=== PATIENT | female | born 1975 | race Caucasian/White ===

== ENCOUNTER 2016-08-20 08:04 | Emergency (ER) | payer BC, OTHER ==
[~2016-08-20] VITALS: Ht 157.5 cm; Wt 67.4 kg
[~2016-08-20 08:04] MED LIST: MTR600X PO
[2016-08-20 08:08] VITALS: TEMP 36.7; Ht 157.5 cm; Wt 67.4 kg
[2016-08-20] MEDS ORDERED: ONDANSETRON INJ 2 MG/ML 2 ML VIAL IV STA (08:28)
[2016-08-20] MEDS ORDERED: MoRPHine SULFATE 2 MG/ML CARP IV STA ×2 (08:28→08:49)
[2016-08-20] MEDS ORDERED: LEVO125T72 PO (08:29)
[2016-08-20 08:50] LABS: BASO % 0.4 %; BASO ABS # 0.01 K/uL (0-0.2); COMPLETE YES; EOS % 1.2 %; HEMATOCRIT 38.3 % (37-47); LYMPH % 25.9 %; LYMPH ABS # 0.64 K/uL (1.2-3.4); MEAN CELL VOLUME 91.6 fL (80-100); MEAN CORPUSCULAR HEMOGLOBIN 31.8 pg (25-34); MEAN CORPUSCULAR HGB CONC 34.7 g/dl (32-36); MONO % 10.1 %; NEUT % 62.4 %; PLATELET COUNT 128 K/uL (130-400); RED BLOOD COUNT 4.18 M/uL (4.2-5.4); WHITE BLOOD COUNT 2.47 K/uL (4.8-10.8)
[2016-08-20 09:02] LABS: BUN/CREATININE RATIO 13.4 (10-20); CALCIUM 9.3 mg/dl (8.5-10.1); CREATININE 1.1 mg/dl (0.60-1.20); POTASSIUM 3.7 mmol/L (3.5-5.1)
--- NOTE | 2016-08-20 09:27 | DIAGNOSTIC IMAGING REPORT ---
CT OF THE CERVICAL SPINE WITHOUT CONTRAST CLINICAL HISTORY: Neck pain. Spasm. COMPARISON STUDY: No previous studies for comparison. TECHNIQUE: Helical axial images of the cervical spine were obtained without IV contrast. Sagittal and coronal reconstructions were viewed. FINDINGS: There is reversal of the normal cervical lordosis. Alignment of the cervical spine is otherwise anatomic. Vertebral body heights are maintained. There is no fracture or suspicious lesion. Central canal and neural foramen are suboptimally assessed by CT. However, there is no abnormality identified within the central canal. Minimal multilevel degenerative changes are present. There is no prevertebral edema. Lung apices are clear. IMPRESSION: 1. No acute cervical spine fracture or subluxation. 2. Minimal multilevel degenerative disc disease of the cervical spine. 3. Reversal of normal cervical lordosis. Electronically signed by: Jerome Camacho M.D. 08/20/2016 9:26 AM Dictated Date/Time: 08/20/2016 9:22 AM
[2016-08-20] MEDS ORDERED: DIAZEPAM INJ 5 MG/ML 2 ML CARP IV ONE (09:45)
[2016-08-20] MEDS ORDERED: CYCL10TA6 PO (10:30)
[2016-08-20] MEDS ORDERED: HYDR-5688 PO (10:30)
--- NOTE | 2016-08-20 10:31 | EMERGENCY ROOM VISIT NOTE ---
History First contact with patient: 08:14 Chief Complaint: NECK PAIN Stated Complaint: NECK PAIN History of Present Illness The patient is a 40 year old female who presents to the Emergency Department by private vehicle for evaluation of her neck pain. She reports that upon awakening this morning she attempted to turn off her long clock when she felt and heard a "pop" in her neck. She reports that she has been having spasm to the RIGHT side of her neck since. She reports that if she has her arm resting on her side she develops intense spasm in the neck and upper arm. She denies any numbness or tingling into the distal extremity. She took 800 mg of ibuprofen prior to arrival in the emergency department which is not providing any relief of symptoms. Several years ago, she did go through physical therapy for muscular strain in her neck, but has had no issues since. She rates her current discomfort as a 3.5/10. She denies any headaches, dizziness, light headedness, blurred vision, double vision, slurred speech, facial droop, chest pain, nausea, or vomiting. She denies any trauma to the cervical spine. Review of Systems A complete 10-point Review of Systems was discussed with the patient, with pertinent positives and negatives listed in the History of Present Illness. All remaining Review of Systems questions can be considered negative unless otherwise specified. Social History Smoking Status: Never Smoker Smokeless Tobacco Use: No Drug Use: none Occupation Status: employed Current/Historical Medications Scheduled Levothyroxine Sodium (Synthroid), 112 MCG PO Q2D Levothyroxine Sodium (Synthroid), 125 MCG PO Q2D Scheduled PRN Hydrocodone/Acetaminophen 5MG/325MG ([place] 5MG/325MG), 1-2 TABLET PO Q4H PRN for Pain Allergies Coded Allergies: Sulfamethoxazole w/Trimethoprim (Verified Allergy, Intermediate, rash, ) Penicillins (Verified Allergy, Unknown, ?, 08/20/16) Sulfa Drugs (Verified Adverse Reaction, Severe, VOMITING, 08/20/16) Prednisone (Verified Adverse Reaction, Intermediate, "get crazy", 08/20/16) Physical Exam Vital Signs Date Time Temp Pulse Resp B/P Pulse Ox O2 Delivery O2 Flow Rate FiO2 08/20/16 11:04 63 16 107/79 98 08/20/16 10:10 66 16 110/76 96 Room Air 08/20/16 08:08 36.7 83 16 131/81 96 Room Air Pain Rating (0-10): 3.5 Physical Exam VITAL SIGNS - Vital signs and nursing notes were reviewed. GENERAL - 40-year-old female appearing her stated age who is in no acute distress. Communicates well with provider and answers questions appropriately. HEAD - Normocephalic, Atraumatic. No Sears's Sign or Raccoon's Eyes. No depressed skull fractures palpable. EYES - PERRL with EOMI bilaterally. Sclera anicteric. Palpebral conjunctiva pink and moist with no injection noted. EARS - No deformities of external structures noted on gross examination bilaterally. No pain elicited with palpation of the tragus bilaterally. External auditory canals without discharge or otorrhea. Tympanic membranes pearly carney without retraction or bulging. NOSE - Midline and without cyanosis. No epistaxis or purulent drainage noted. Septum midline without deviation or septal hematoma noted. MOUTH/OROPHARYNX - Without perioral cyanosis. Buccal mucosa pink and moist and without leukoplakia. Tongue midline with equal elevation of palate bilaterally. No tonsillar hypertrophy, erythema, or exudates noted. NECK - Neck with limited ROM secondary to patient discomfort. No cervical spinous process tenderness to palpation. Moderate paraspinal muscle tenderness to palpation to the RIGHT sided cervical paraspinal musculature. No lymphadenopathy noted. Moderate pain through range of motion appreciated. Mild pain elicited with axial load applied to the head. EXTREMITIES - +5/5 strength appreciated bilaterally of the upper extremities. +3 /5 radial pulses palpated throughout. FROM with no tremors, fasciculations, or clonus noted on PROM throughout. NEUROLOGIC - Cranial nerves II through XII grossly intact. Sensory intact to light and sharp touch throughout. Patient able to perform rapid alternating movements appropriately. PSYCH - A&Ox3 and cooperates fully with examiner. Pt is very pleasant and interacts well with examiner. Medical Decision & Procedures ER Provider Diagnostic Interpretation: Radiological imaging and reports were reviewed by myself. Radiologist's Interpretation as follows: CT OF THE CERVICAL SPINE WITHOUT CONTRAST CLINICAL HISTORY: Neck pain. Spasm. COMPARISON STUDY: No previous studies for comparison. TECHNIQUE: Helical axial images of the cervical spine were obtained without IV contrast. Sagittal and coronal reconstructions were viewed. FINDINGS: There is reversal of the normal cervical lordosis. Alignment of the cervical spine is otherwise anatomic. Vertebral body heights are maintained. There is no fracture or suspicious lesion. Central canal and neural foramen are suboptimally assessed by CT. However, there is no abnormality identified within the central canal. Minimal multilevel degenerative changes are present. There is no prevertebral edema. Lung apices are clear. IMPRESSION: 1. No acute cervical spine fracture or subluxation. 2. Minimal multilevel degenerative disc disease of the cervical spine. 3. Reversal of normal cervical lordosis. Laboratory Results 08/20/16 08:35 Red Blood Count 4.18, Mean Corpuscular Volume 91.6, Mean Corpuscular Hemoglobin 31.8, Mean Corpuscular Hemoglobin Concent 34.7, Mean Platelet Volume 11.0, Neutrophils (%) (Auto) 62.4, Lymphocytes (%) (Auto) 25.9, Monocytes (%) (Auto) 10.1, Eosinophils (%) (Auto) 1.2, Basophils (%) (Auto) 0.4, Neutrophils # (Auto ) 1.54, Lymphocytes # (Auto) 0.64, Monocytes # (Auto) 0.25, Eosinophils # (Auto ) 0.03, Basophils # (Auto) 0.01 08/20/16 08:35 Test 08/20/16 08:35 White Blood Count 2.47 K/uL (4.8-10.8) Red Blood Count 4.18 M/uL (4.2-5.4) Hemoglobin 13.3 g/dL (12.0-16.0) Hematocrit 38.3 % (37-47) Mean Corpuscular Volume 91.6 fL (80-100) Mean Corpuscular Hemoglobin 31.8 pg (25-34) Mean Corpuscular Hemoglobin Concent 34.7 g/dl (32-36) Platelet Count 128 K/uL (130-400) Mean Platelet Volume 11.0 fL (7.4-10.4) Neutrophils (%) (Auto) 62.4 % Lymphocytes (%) (Auto) 25.9 % Monocytes (%) (Auto) 10.1 % Eosinophils (%) (Auto) 1.2 % Basophils (%) (Auto) 0.4 % Neutrophils # (Auto) 1.54 K/uL (1.4-6.5) Lymphocytes # (Auto) 0.64 K/uL (1.2-3.4) Monocytes # (Auto) 0.25 K/uL (0.11-0.59) Eosinophils # (Auto) 0.03 K/uL (0-0.5) Basophils # (Auto) 0.01 K/uL (0-0.2) RDW Standard Deviation 42.7 fL (36.4-46.3) RDW Coefficient of Variation 12.7 % (11.5-14.5) Immature Granulocyte % (Auto) 0.0 % Immature Granulocyte # (Auto) 0.00 K/uL (0.00-0.02) Anion Gap 13.0 mmol/L (3-11) Est Creatinine Clear Calc Drug Dose 61.2 ml/min Estimated GFR () 72.7 Estimated GFR (Non- 62.8 BUN/Creatinine Ratio 13.4 (10-20) Calcium Level 9.3 mg/dl (8.5-10.1) Medications Administered Medications (Trade) Dose Ordered Sig/Paul Route Start Time Stop Time Status Last Admin Dose Admin Morphine Sulfate (MoRPHine SULFATE INJ) 2 mg NOW STAT IV 08/20/16 08:28 08/20/16 08:30 DC 08/20/16 08:36 2 MG Ondansetron HCl (Zofran Inj) 4 mg NOW STAT IV 08/20/16 08:28 08/20/16 08:30 DC 08/20/16 08:35 4 MG Morphine Sulfate (MoRPHine SULFATE INJ) 2 mg NOW STAT IV 08/20/16 08:49 08/20/16 08:50 DC 08/20/16 08:55 2 MG Diazepam (Valium Inj) 2.5 mg NOW ONCE IV 08/20/16 09:45 08/20/16 09:46 DC 08/20/16 09:40 2.5 MG ED Course Patient was seen and evaluated by myself. Labs were drawn, saline lock complains. The patient was treated with 2 mg morphine and 4 mg Zofran intravenously for pain. CT of the cervical spine was obtained. Patient was treated with an additional 2 mg morphine for ongoing pain. Patient is still unable to relax the RIGHT upper extremity secondary to pain. CT results above. Because of her ongoing symptoms, the patient was treated with 2.5 mg Valium intravenously. Patient had near complete resolve symptoms at this point. Laboratory results and imaging studies were reviewed with the patient who acknowledges understanding. The patient was educated on peln-umw-yswaxba medications as well as worrisome symptoms for return visit to the emergency department. Patient discharged home in good condition with her driving. Medical Decision Given the patient's presentation and exam finds, I did elect to perform the above-mentioned workup. The patient resents today with an acute injury to the neck. There is no direct trauma, however the patient has obvious spasm to the RIGHT-sided paraspinal musculature. She has pain through range of motion. She has no radicular symptoms. CT demonstrates no acute findings otherwise. The patient is a narcotic franco and does not respond well to narcotic pain medications in general. Because of this, she was titrated slowly with 2 g morphine and eventually received 2.5 mg Valium intravenously. She had near complete response to this regime. Patient refuses steroids as she has a sensitivity to the medication. The patient was provided pain medication for home. She'll follow-up with her primary care provider from today's visit or return to the emergency department in the setting of any change or worsening symptoms. Patient discharged home in good condition with her driving. In the evaluation and treatment of this patient, the following differential diagnoses were considered: Musculoskeletal Strain, Discitis, Cervical Spine Fracture, Cervical Spine Dislocation, Cervical Spine Subluxation, Cervical Spondylosis, Fibromyalgia, Osteoarthritis, Polymyalgia Rheumatica, Psychogenic Pain Disorder, Tumor of Soft Tissue or Spine. Impression Primary Impression: Cervical strain, acute Departure Information Dispostion Home / Self-Care Condition GOOD Prescriptions Hydrocodone/Acetaminophen 5MG/325MG ([place] 5MG/325MG) Tab 1-2 TABLET PO Q4H Y for Pain, #24 TAB For Initial Treatment Prov: Dheeraj Raza PA-C 08/20/16 Referrals Pepper Bartholomew M.D. (PCP) Patient Instructions [facility], Neck Strain - [facility] Additional Instructions You have been treated in the Emergency Department for Cervical Strain. You have received pain medicine in the emergency department which impairs your ability to operate a vehicle. It is illegal for you to drive after receiving these medicines. You have been prescribed [place] one to 2 tabs every 4-6 hours as needed for pain. This is a narcotic medication. You cannot drive or consume alcohol while on this medicine. This medicine should only be used for pain that cannot be controlled with yhvx-oqe-qqhuhiy pain medicines. You have been prescribed Flexeril (cyclobenzaprine) 1-2 tabs orally, three times per day. Do NOT exceed 30 mg (6 tabs) per day. Take your first dose at bedtime as it can make you drowsy. Always take all medications as prescribed. For pain control, you can use the following ivfv-azc-jfzkykw medicines (if >12 yo): - Regular strength (325mg/tab) Tylenol (acetaminophen) 2 tabs every 4-6 hours as needed. Do not exceed 12 tablets in a 24 hour period. Avoid taking more than 4 grams (4000 mg) of Tylenol per day. This includes any other sources of acetaminophen you may take on a regular basis. - Regular strength (200 mg/tab) Advil (ibuprofen) 1-2 tabs every 4-6 hours as needed. Do not exceed a dose of 3200 mg per day. If this is an acute injury, ice can be applied to the area of pain for the first 3 days to help decrease pain and inflammation. After the first 3 days, a heating pad can be used over the area for continued soothing relief. You should schedule a follow-up appointment in 2-3 days with your Primary Care Provider for further evaluation and treatment of your neck pain. Return to the Emergency Department if your current symptoms worsen despite treatment course outlined above, or if you develop any of the following symptoms : intractable pain despite aforementioned treatment course, facial droop, slurred speech, unilateral weakness, or worsening of her current symptoms. Problem Qualifiers Primary Impression: Cervical strain, acute Encounter type: initial encounter Qualified Codes: S16.1XXA - Strain of muscle, fascia and tendon at neck level, initial encounter
[2016-08-20 11:04] VITALS: BP 107/79; PULSE 63; O2SAT 98
[2016-08-20] MEDS ORDERED: LEVO112T2 PO (11:55)
[2017-02-08] MEDS ORDERED: OXYC-57 PO (09:17)
== END 2016-08-20 11:06 | disposition home or self-care (01) ==
LOC: C.EDB 08:05
DX: S16.1XXA Strain of muscle, fascia and tendon at neck level, initial encounter (principal); X50.1XXA Overexertion from prolonged static or awkward postures, initial encounter; Y92.013 Bedroom of single-family (private) house as the place of occurrence of the external cause; Z79.899 Other long term (current) drug therapy

== ENCOUNTER → 2016-12-10 | Outpatient (CLI) | payer BC ==
[~2016-12-10] MED LIST changes: +HYDR-5688 PO; +LEVO112T2 PO; +LEVO125T72 PO; -MTR600X PO; +OXYC-57 PO
== END | disposition home or self-care (01) ==
LOC: C.PAPS 16:20
PROVIDERS: ATTEND Obstetrics & Gynecology
DX: N92.0 Excessive and frequent menstruation with regular cycle (principal)

== ENCOUNTER 2017-02-08 07:00 | Observation (INO) | payer BC ==
[2017-01-25 13:48] VITALS: BMI 26.0
--- NOTE | 2017-01-25 14:12 | PAT Medication Instructions ---
Service Date Jan 25, 2017. Current Home Medication List Levothyroxine Sodium (Synthroid), 112 MCG PO Q2D Levothyroxine Sodium (Synthroid), 125 MCG PO Q2D Medication Instructions For Your Scheduled Surgery - Take the following medications the morning of surgery with a sip of water: Levothyroxine Sodium (Synthroid), 112 MCG PO Q2D Levothyroxine Sodium (Synthroid), 125 MCG PO Q2D If you have any questions please call us at [phone] or [phone] or [phone]
[2017-01-25 14:40] LABS: BASO % 0.4 %; BASO ABS # 0.02 K/uL (0-0.2); COMPLETE YES; HEMATOCRIT 37.1 % (37-47); LYMPH % 33.7 %; LYMPH ABS # 1.73 K/uL (1.2-3.4); MEAN CELL VOLUME 90.9 fL (80-100); MEAN CORPUSCULAR HEMOGLOBIN 30.9 pg (25-34); MEAN PLATELET VOLUME 11.3 fL (7.4-10.4); MONO % 5.3 %; NEUT % 59.6 %; PLATELET COUNT 135 K/uL (130-400); RED BLOOD COUNT 4.08 M/uL (4.2-5.4); WHITE BLOOD COUNT 5.13 K/uL (4.8-10.8)
[~2017-02-08] VITALS: Ht 157.5 cm; Wt 65.6 kg
[2017-02-08] VITALS (7 sets, daily range): BP systolic 109–121; BP diastolic 63–81; PULSE 56–83; TEMP 36.3–36.7; O2SAT 94–100; Ht 157.5 cm; Wt 65.6 kg
[~2017-02-08 07:00] MED LIST changes: +CEFAZOLIN 2000 MG/60 ML D5W 60 ML IV SCH; -HYDR-5688 PO; +LACTATED RINGER'S 1000ML 1,000 ML IV SCH; +LACTATED RINGER'S 1000ML IV SCH; -OXYC-57 PO; +SCOPOLAMINE 1.5 MG TDSY TD SCH
[2017-02-08] MEDS ORDERED: MIDAZOLAM HCL 1 MG/ML 2ML VIAL ONE (08:10)
[2017-02-08] MEDS ORDERED: FENTANYL CITRATE INJ 50 MCG/1 ML 2 ML VIAL ONE (08:10)
[2017-02-08] MEDS ORDERED: HYDROmorphone INJ 2 MG/ML SYR/VIAL ONE (08:10)
[2017-02-08] MEDS ORDERED: ACETAMINOPHEN 325 MG TAB PO PRN (09:15)
[2017-02-08] MEDS: LACTATED RINGER'S 1000ML 1,000 ML IV SCH ×3 (09:15→21:59)
[2017-02-08] MEDS ORDERED: KETOROLAC TROMETHAMINE 30 MG/ML VIAL IV. PRN ×2 (09:15→09:30)
[2017-02-08] MEDS ORDERED: MEPERIDINE HCL 50 MG/ML CARP IV PRN ×2 (09:15)
[2017-02-08] MEDS ORDERED: OXYCODONE/ACETAMINOPHEN 5-325 TAB PO PRN ×2 (09:15)
--- NOTE | 2017-02-08 09:15 | History & Physical Bridge Note ---
H&P Re-Evaluation Bridge Note: I have examined the patient, reviewed the History & Physical and in the interval since the performance of the History & Physical I have noted the following changes of clinical significance: No changes noted
[2017-02-08] MEDS ORDERED: OXYC-57 PO (09:17)
--- NOTE | 2017-02-08 09:18 | Discharge Instructions ---
Discharge Instructions Date of Service Feb 08, 2017. Visit Reason for Visit: Menorrhagia Discharge Discharge Diagnosis / Problem: Hysterectomy Discharge Goals Goal(s): Specific goals Activity Recommendations Activity Limitations: per Instructions/Follow-up section Anesthesia . Post Anesthesia Instructions: If you have had General Anesthesia or IV Sedation: * Do not drive today. * Resume driving when surgeon permits. * Do not make important decisions or sign legal documents today. * Call surgeon for: 1. Temperature elevations greater than 101 degrees F. 2. Uncontrollable pain. 3. Excessive bleeding. 4. Persistent nausea and vomiting. 5. Medication intolerance (nausea, vomiting or rash). * For nausea and vomiting use only clear liquids such as: tea, soda, bouillon until nausea subsides, then gradually increase diet as tolerated. * If you have any concerns or questions, call your surgeon's office. If physician is unavailable and it is an emergency, call 911 or go to the nearest emergency room. . Instructions / Follow-Up Instructions / Follow-Up POST OPERATIVE: BOWEL FUNCTION/MEDICATIONS: 1. Constipation pain and discomfort are the most common complaints 5-7 days after surgery. Points 2-6 address the things that can help. 2. Chewing gum can help stimulate the gut and help improve digestion and motility. 3. Milk of Magnesia 1-2 times per day until return of bowel function. 4. Colace is a stool softener that helps. Taking this 2-3 times per day until bowel function returns to normal is highly recommended. 5. Dulcolax is a laxative that may be used if several days have passed without a bowel movement. Alternatively Miralax may be used daily instead. 6. Drink plenty of fluids as this will also reduce constipation. 7. Narcotic pain medications will be prescribed by your physician. They are safe to use and we encourage you to use them. If you are not allergic, ibuprofen will also be prescribed. Many patients will be able to transition off of the narcotic medications to ibuprofen by postoperative day 3. ACTIVITY RECOMMENDATIONS: 1. Get plenty of rest and listen to your body. If you are tired, take a nap. 2. You may shower, but do not take a tub bath until you see your doctor at the 2 week post operative visit. 3. Absolutely NO intercourse and nothing in the vagina until you are examined by your doctor at the 6 week visit. At that visit it will be determined when such activities can be resumed. This can range from 6-12 weeks after your surgery depending on healing time. 4. The main physical activity in the first week should be walking. By the second week you can slowly increase activity. There are no limits on walking up and down stairs. 5. Do not lift more than 5-10 lbs for 4 weeks. Remember the "one-handed rule", i.e. if you can lift something with only one hand it's likely okay. 6. Minimize natural resources professor like vacuuming and exercising for 4 weeks. "Overdoing it" can lead to incisions not healing, pain and vaginal bleeding , so again, listen to your body. 7. Driving can be resumed when you feel able. Do not drive within 24 hours of taking a narcotic medication. EXPECTATIONS: 1. Vaginal spotting, bleeding and discharge are common after surgery. There may even be an odor to the discharge which is often related to sutures used in the vagina. If you experience heavy vaginal bleeding, call the office number day or night [phone]. 2. Bladder discomfort is common after surgery from the catheter. This usually resolves in 1-2 weeks. 3. By the end of the 3rd or 4th week you should be feeling much better. It may take up to 6 weeks for your energy levels to return to normal. 4. Narcotic medications have side effects such as: dizziness, headache, nausea and/or vomiting. If you suspect your pain medication is causing problems, call our office and we may be able to prescribe an alternate medication. 5. The skin incisions are often covered with a liquid bandage. This will gradually peel off over time. CALL THE OFFICE IF YOU HAVE ANY OF THE FOLLOWIN. Temperature of 101 degrees or higher. 2. Severe abdominal or pelvic pain not relieved by pain medication. 3. Persistent nausea or vomiting. 4. Increased pain with urination or difficulty urinating. 5. Bright red bleeding that soaks more than 1 pad per hour. CONTACT PHONE NUMBERS: Main Office: [phone] Surgical Nurse: [phone] extension [phone] FOLLOW-UP: Post-Operative Appointments: * Individual instructions will have been given about the timing of your first examination, but this is usually at the end of the second week home. * You will need to call the office at soon after discharge to make the appointment for your post-op check-up if it has not already been scheduled. * Additional information regarding activity, sexual intercourse and when to return to work will be given at this appointment. WE WISH YOU A SPEEDY RECOVERY! Diet Recommendations Recommended Home Diet: resume previous diet Pending Studies Studies pending at discharge: no Medical Emergencies . Who to Call and When: Medical Emergencies: If at any time you feel your situation is an emergency, please call 911 immediately. . Non-Emergent Contact Non-Emergency issues call your: Primary Care Provider . . "Provider Documentation" section prepared by Urszula Costa. . [place] Drug Monitoring Program Search Results: no issues identified
[2017-02-08] MEDS ORDERED: PROMETHAZINE HCL INJ 6.25 MG in SODIUM CHLORIDE 0.9% 50ML 50 ML IV PRN ×2 (09:30→13:15)
[2017-02-08] MEDS ORDERED: HYDROmorphone INJ 2 MG/ML SYR/VIAL IV PRN (09:30)
[2017-02-08] MEDS ORDERED: ONDANSETRON INJ 2 MG/ML 2 ML VIAL IV PRN ×2 (09:30→13:15)
[2017-02-08] MEDS ORDERED: ATROPINE SULFATE 0.1 MG/ML 5ML SYR IV PRN ×2 (09:30→13:15)
[2017-02-08] MEDS ORDERED: IV FLUIDS COMPLETED PRN (10:30)
[2017-02-08] MEDS ORDERED: KETAMINE HCL INJ 50 MG/ML 10 ML VIAL ONE (10:48)
[2017-02-08] MEDS ORDERED: PROPOFOL IV EMULSION 10 MG/ML 20 ML VIAL IV ONE (10:49)
[2017-02-08] MEDS ORDERED: ONDANSETRON INJ 2 MG/ML 2 ML VIAL ONE (10:49)
[2017-02-08] MEDS ORDERED: DEXAMETHASONE SOD INJ 4 MG/ML VIAL ONE ×2 (10:49→11:19)
[2017-02-08] MEDS ORDERED: NEOSTIGMINE METHYLSULFATE 5 MG/5 ML SYR ONE (10:49)
[2017-02-08] MEDS ORDERED: GLYCOPYRROLATE INJ 0.2 MG/ML VIAL ONE ×2 (10:49→12:14)
[2017-02-08] MEDS ORDERED: ROCURONIUM BROMIDE 10 MG/ML 5 ML VIAL ONE (10:49)
[2017-02-08] MEDS ORDERED: LIDOCAINE HCL 2% 2 ML VIAL (20MG/ML) ONE (10:49)
[2017-02-08] MEDS ORDERED: DiphenhydrAMINE HCL 50 MG/ML VIAL ONE (10:49)
[2017-02-08] MEDS ORDERED: METHYLENE BLUE 0.5% 10 ML VIAL ONE (11:19)
[2017-02-08] MEDS ORDERED: KETOROLAC TROMETHAMINE 30 MG/ML VIAL ONE (11:30)
[2017-02-08] MEDS ORDERED: TISSEEL FIBRIN SEALANT 4ML TOP ONE (11:47)
[2017-02-08] MEDS ORDERED: LARYING-O-JET KIT (LTA) ONE ×2 (11:56)
--- NOTE | 2017-02-08 12:22 | Medical Student: [facility] ---
Immediate Operative Summary Operative Date Feb 08, 2017. Pre-Operative Diagnosis Menorrhagia Post-Operative Diagnosis Same Procedure(s) Performed Hyesterectomy, Right Salpingectomy, Cystoscopy Surgeon Dr. Costa Warehouse Helper Surgeon(s) Farnaz Yousif MS3 Estimated Blood Loss 30 cc Findings Uterus densely adhered to anterior abdominal wall. Fluids (cc crystalloids) 1350 cc Specimens Uterus and right fallopian tube segment. Drains 200 cc urine mckeon catheter Anesthesia General Complication(s) None Disposition Recovery Room / PACU
--- NOTE | 2017-02-08 13:43 | Anesthesiology Progress Note ---
Anesthesia Post Op Note Date & Time Feb 08, 2017 at 13:42 Vital Signs Pain Intensity: 0 Vital Signs Past 12 Hours Date Time Temp Pulse Resp B/P (MAP) Pulse Ox O2 Delivery O2 Flow Rate FiO2 02/08/17 13:34 51 02/08/17 13:34 51 16 100 02/08/17 13:32 115/66 02/08/17 13:29 52 12 100 02/08/17 13:29 51 12 02/08/17 13:24 52 12 02/08/17 13:24 52 12 100 02/08/17 13:21 116/74 02/08/17 13:19 55 13 100 02/08/17 13:19 55 13 02/08/17 13:17 108/72 02/08/17 13:14 53 9 100 02/08/17 13:14 52 9 02/08/17 13:13 36.5 02/08/17 13:12 53 14 117/67 100 02/08/17 13:12 53 14 02/08/17 13:07 55 13 02/08/17 13:07 56 13 115/71 100 02/08/17 13:02 58 14 100 02/08/17 13:02 58 14 02/08/17 13:01 125/80 02/08/17 12:57 56 13 113/54 100 02/08/17 12:57 56 13 02/08/17 12:52 58 9 02/08/17 12:52 58 9 123/59 100 02/08/17 12:47 57 16 02/08/17 12:47 58 16 100 02/08/17 12:46 122/64 02/08/17 12:42 71 11 100 02/08/17 12:42 71 11 02/08/17 12:41 100/84 02/08/17 12:37 59 12 02/08/17 12:37 59 12 100 02/08/17 12:36 111/61 02/08/17 12:32 71 7 128/66 100 02/08/17 12:32 70 7 02/08/17 12:27 70 14 02/08/17 12:27 70 14 99 02/08/17 12:26 137/72 02/08/17 12:22 64 15 02/08/17 12:22 64 15 100 02/08/17 12:21 115/70 02/08/17 12:18 137/68 02/08/17 12:17 72 100 02/08/17 12:17 36.2 73 16 137/68 100 Mask 10 02/08/17 12:17 72 02/08/17 07:40 36.7 70 18 116/77 (90) 99 Room Air Notes Mental Status: alert / awake / arousable, participated in evaluation Pt Amnestic to Procedure: Yes Nausea / Vomiting: adequately controlled Pain: adequately controlled Airway Patency, RR, SpO2: stable & adequate BP & HR: stable & adequate Hydration State: stable & adequate Anesthetic Complications: no major complications apparent
[2017-02-08 15:57] LABS: HEMATOCRIT 33.3 % (37-47)
[2017-02-08] MEDS: CHECK SCOPOLAMINE PATCH PLACEMENT SCH ×2 (15:57→23:47)
[2017-02-08] MEDS ORDERED: ONDANSETRON HOME PACK 4MG OD TAB PO ONE (18:45)
[2017-02-08] MEDS: ONDANSETRON INJ 2 MG/ML 2 ML VIAL IV PRN (19:44)
[2017-02-08] MEDS: DOCUSATE SODIUM 100 MG CAP PO SCH (20:34)
[2017-02-08] MEDS: IBUPROFEN 600 MG TAB PO PRN ×2 (23:10→23:32)
[2017-02-09] MEDS: ONDANSETRON INJ 2 MG/ML 2 ML VIAL IV PRN ×2 (02:21→09:00)
[2017-02-09 03:50] VITALS: BP 96/62; PULSE 58; TEMP 36.8; O2SAT 94
[2017-02-09] MEDS: LACTATED RINGER'S 1000ML 1,000 ML IV SCH (05:45)
[2017-02-09 07:40] VITALS: BP 110/70; PULSE 69; TEMP 37.1; O2SAT 93
[2017-02-09] MEDS: CHECK SCOPOLAMINE PATCH PLACEMENT SCH (08:00)
[2017-02-09] MEDS: DOCUSATE SODIUM 100 MG CAP PO SCH (08:59)
[2017-02-09] MEDS: IBUPROFEN 600 MG TAB PO PRN (08:59)
[2017-02-09 10:15] VITALS: BP 110/70; PULSE 69; TEMP 37.1; O2SAT 93
--- NOTE | 2017-02-20 14:19 | Discharge Summary ---
Discharge Summary Date of Service Feb 20, 2017. Discharge Summary Admission Date: Feb 08, 2017 at 09:17 Discharge Date: Feb 09, 2017 Discharge Disposition: Home Principal Diagnosis: Hysterectomy Immunizations: Have You Had Influenza Vaccine: Yes Influenza Vaccine Date: Apr 29, 2013 History of Tetanus Vaccine?: Yes Tetanus Immunization Date: Jan 27, 2010 History of Pneumococcal: No History of Hepatitis B Vaccine: Yes Procedures: Robotic hysterectomy, R salpingectomy, cystoscopy Medication Reconciliation New Medications: Oxycodone/Acetaminophen 5MG/325MG (Percocet 5MG/325MG) Tab 1 TABLET PO Q4H PRN for Pain, #15 TAB Continued Medications: Levothyroxine Sodium (Synthroid) 112 Mcg Tab 112 MCG PO Q2D, TAB Levothyroxine Sodium (Synthroid) 125 Mcg Tab 125 MCG PO Q2D, TAB Hospital Course Total Time Spent: Less than 30 minutes This includes examination of the patient, discharge planning, medication reconciliation, and communication with other providers. Discharge Instructions Please refer to the electronic Patient Visit Report (Discharge Instructions) for additional information.
--- NOTE | 2017-02-20 14:54 | OPERATIVE REPORT ---
DATE OF OPERATION: 02/08/2017 PREOPERATIVE DIAGNOSIS: Menorrhagia. POSTOPERATIVE DIAGNOSIS: Same. PROCEDURE: Robotic hysterectomy with right salpingectomy and cystoscopy. SURGEON: Dr. Urszula Costa. RADIO EQUIPMENT INSTALLER: Nancy Torres MD ESTIMATED BLOOD LOSS: 30 mL. FINDINGS: Dense uterine adhesions to the anterior abdominal wall. SPECIMENS: Uterus and segment of right fallopian tube. COMPLICATIONS: None. DISPOSITION: Stable to the recovery room. DESCRIPTION OF PROCEDURE: Brandy was brought to the operating room and placed on the table in the dorsal lithotomy position with Yellofin stirrups, prepped and draped in the standard sterile fashion and a hard time-out was taken prior to proceeding. The Paredes and VCare uterine manipulator were introduced as per usual. Of note, the cervix was very anteriorly fixed and introduction of the VCare was somewhat difficult. Entry was then made at the abdominal paraumbilical local region without complication in an optical manner. The abdomen was insufflated. The patient was placed in steep Trendelenburg and right and left lower quadrant ports were placed under direct visualization. Portion of the right fallopian tube was able to be isolated and dissected off the mesosalpinx and allowed to remain attached at the uterine cornu. The left fallopian tube was difficult to visualize. There appeared to have been some fimbria densely adherent near the ovary in an area of adhesions that was not easily able to identify. It was not felt to be worth the risk to the patient's overlying bowel to remove this portion of tube. Dissection proceeded to free the uterus from the anterior abdominal wall and identify the area of the colpotomy cup and the bladder flap. The right and left uteroovarian ligaments were ligated and divided. The round ligaments were ligated and divided and a bladder flap was created. The uterine arteries were skeletonized and ligated bilaterally and circumferential colpotomy was completed. The uterus, cervix and portion of right fallopian tube were delivered through the vagina. The vagina was closed using a V-Loc suture at the cuff as is typical. Suction irrigation was used to ensure good hemostasis at all working sites. Methylene blue dye was administered and cystoscopy was carried out showing good strong blue stained jets of each ureteral orifice. The bladder was then drained and abdominal closure proceeded with UR-6 at the fascial layer in the umbilicus as well as Monocryl and Dermabond dressing at all other sites. The patient was then transferred in stable condition to the recovery room. I attest to the content of the Intraoperative Record and any orders documented therein. Any exception s are noted below.
== END 2017-02-09 10:25 | disposition home or self-care (01) ==
LOC: C.ACU 07:00 → C.MS4N 09:17 → ENRESERV 13:32
PROVIDERS: ADMIT Obstetrics & Gynecology; ATTEND Obstetrics & Gynecology
DX: D25.9 Leiomyoma of uterus, unspecified (principal); N73.6 Female pelvic peritoneal adhesions (postinfective); N70.11 Chronic salpingitis; Z79.899 Other long term (current) drug therapy

== ENCOUNTER → 2017-07-08 | Outpatient (CLI) | payer BC ==
[~2017-07-08] MED LIST changes: -CEFAZOLIN 2000 MG/60 ML D5W 60 ML IV SCH; -LACTATED RINGER'S 1000ML 1,000 ML IV SCH; -LACTATED RINGER'S 1000ML IV SCH; +OXYC-57 PO; -SCOPOLAMINE 1.5 MG TDSY TD SCH
--- NOTE | 2017-07-08 15:19 | DIAGNOSTIC IMAGING REPORT ---
CT HEAD WITHOUT CONTRAST (CT) CLINICAL HISTORY: Severe headache COMPARISON STUDY: No previous studies for comparison. TECHNIQUE: Axial CT of the brain is performed from the vertex to the skull base. IV contrast was not administered for this examination. A dose lowering technique was utilized adhering to the principles of ALARA. CT DOSE: 537.48 mGy.cm FINDINGS: No intra or extra-axial mass lesions are visualized. There is no CT evidence of acute cortical infarction. There is no evidence of midline shift. There is no acute hemorrhage. No calvarial fractures are visualized. There is no evidence of pathologic ventricular dilatation. There is no evidence of acute sinusitis IMPRESSION: Normal noncontrast head CT. Electronically signed by: Agustin Molina M.D. 07/08/2017 3:17 PM Dictated Date/Time: 07/08/2017 3:17 PM
== END | disposition home or self-care (01) ==
LOC: C.CTS 15:08
PROVIDERS: ATTEND Family Medicine
DX: R51 Headache (principal)